=== PATIENT | male | born 1970 | race Caucasian/White ===

== ENCOUNTER 2018-03-28 22:02 | Emergency (ER) | payer BC, OTHER ==
[~2018-03-28] VITALS: Ht 182.9 cm; Wt 108.8 kg
[~2018-03-28 22:02] MED LIST: LSN5 PO; METF-384 PO; OMEP20CA9 PO
[2018-03-28 22:12] VITALS: TEMP 36.5; Ht 182.9 cm; Wt 108.8 kg
[2018-03-28] MEDS ORDERED: NovoLIN-R INSULIN PER UNIT CHARGE IV STA ×2 (22:31→23:20)
[2018-03-28] MEDS ORDERED: SODIUM CHLORIDE 0.9% 1000ML 2,000 ML IV STA (22:31)
[2018-03-28 22:43] LABS: BASO % 0.3 %; BASO ABS # 0.03 K/uL (0-0.2); EOS % 0.4 %; EOS ABS # 0.05 K/uL (0-0.5); HEMATOCRIT 40.4 % (42-52); HEMOGLOBIN 14.7 g/dL (14.0-18.0); IG# 0.14 K/uL (0.00-0.02); LYMPH % 28.9 %; LYMPH ABS # 3.32 K/uL (1.2-3.4); MEAN CORPUSCULAR HEMOGLOBIN 29.5 pg (25-34); MEAN CORPUSCULAR HGB CONC 36.4 g/dl (32-36); MEAN PLATELET VOLUME 9.3 fL (7.4-10.4); MONO % 4.7 %; MONO ABS # 0.54 K/uL (0.11-0.59); NEUT % 64.5 %; NEUT ABS # 7.41 K/uL (1.4-6.5); PLATELET COUNT 331 K/uL (130-400); RED CELL DISTRIBUTION WIDTH CV 12.7 % (11.5-14.5); RED CELL DISTRIBUTION WIDTH SD 37.2 fL (36.4-46.3); WHITE BLOOD COUNT 11.49 K/uL (4.8-10.8)
--- NOTE | 2018-03-28 23:07 | EMERGENCY ROOM VISIT NOTE ---
History Report prepared by Parvez: Anitha Cervantes Under the Supervision of: Dr. Marko Lloyd M.D. First contact with patient: 22:26 Chief Complaint: HYPERGLYCEMIA Stated Complaint: HIGH BLOOD SUGAR - BLURRY VISION Nursing Triage Summary: patient reports visual changes so he checked his blood sugar and it was greater than 300. Diabetic managed without insulin. Taking prednisone for a few days. History of Present Illness The patient is a 47 year old male who presents to the Emergency Room with complaints of persistent hyperglycemia starting MEDICAL OFFICER. The patient noticed yesterday that his vision had started becoming blurry and he was feeling fatigued. Today his blurry vision worsened so he checked his blood sugar and found that it was over 300. He has been urinating more than usual and has been thirsty. He does not check his sugar regularly, but when he does it is normally around 120. He was started on prednisone 4-5 days ago for his shoulder. His shoulder pain has improved, but it is causing his blood sugars to be elevated. Prednisone has caused his blood sugar to rise in the past. He has a history of diabetes and is on metformin and Actos which he has been taking normally. He denies any fever, cough, rash, or abdominal pain. Source of History: patient Onset: MEDICAL OFFICER Position: other (blood sugar) Quality: other (hyperglycemia) Timing: other (persistent) Modifying Factors (Worsening): other (prednisone) Associated Symptoms: + fatigue, No fevers, No cough, No abdominal pain, No rash Note: Pt reports blurry vision, frequent urination, increased thirst. Review of Systems See HPI for pertinent positives & negatives. A total of 10 systems reviewed and were otherwise negative. Past Medical & Surgical Medical Problems: (1) DIAB MARCY WO COMPL, TYPE II OR UNSPEC TYPE, NOT UNCNTRLD (2) ESOPHAGEAL REFLUX (3) FAM HX-DIABETES MELLITUS (4) FAM HX-ISCHEM HEART DIS (5) FX MEDIAL MALLEOLUS-CLOS (6) FX SHAFT FIBULA-CLOSED (7) PERSONAL HISTORY OF PEPTIC ULCER DISEASE Family History Diabetes mellitus Heart disease Hypertension Kidney disease Kidney stones Social History Smoking Status: Never Smoker Alcohol Use: none Marital Status: Housing Status: lives with family Occupation Status: employed Current/Historical Medications Scheduled Metformin Hcl (Glucophage), 1,000 MG PO BID Omeprazole (Prilosec), 20 MG PO DAILY Pioglitazone Hcl (Actos), Unknown Dose PO DAILY Allergies Coded Allergies: No Known Allergies (Unverified , 03/28/18) Physical Exam Vital Signs Date Time Temp Pulse Resp B/P (MAP) Pulse Ox O2 Delivery O2 Flow Rate FiO2 03/29/18 00:30 71 20 144/64 96 03/28/18 22:12 36.5 77 18 143/75 97 Room Air Physical Exam GENERAL: Patient is in no acute distress. HEENT: No acute trauma, normocephalic atraumatic, mucous membranes dry, no nasal congestion, no scleral icterus. NECK: No stridor, no adenopathy, no meningismus, trachea is midline. LUNGS: Clear to auscultation bilaterally, no wheeze, no rhonchi, breath sounds equal. HEART: Without murmurs gallops or rubs, regular rate and rhythm. ABDOMEN: Soft, nontender, bowel sounds positive, no hernias, no peritonitis. EXTREMITIES: No cyanosis or edema, full range of motion of all the joints without pain or difficulty, no signs for acute trauma. NEUROLOGIC: Oriented x 3, no acute motor or sensory deficits, no focal weakness. SKIN: No rash, no jaundice, no diaphoresis. Medical Decision & Procedures Laboratory Results 03/28/18 22:25 Red Blood Count 4.99, Mean Corpuscular Volume 81.0, Mean Corpuscular Hemoglobin 29.5, Mean Corpuscular Hemoglobin Concent 36.4, Mean Platelet Volume 9.3, Neutrophils (%) (Auto) 64.5, Lymphocytes (%) (Auto) 28.9, Monocytes (%) (Auto) 4.7, Eosinophils (%) (Auto) 0.4, Basophils (%) (Auto) 0.3, Neutrophils # (Auto) 7.41, Lymphocytes # (Auto) 3.32, Monocytes # (Auto) 0.54, Eosinophils # (Auto) 0.05, Basophils # (Auto) 0.03 03/28/18 22:25 Test 03/28/18 22:25 03/29/18 00:22 White Blood Count 11.49 K/uL (4.8-10.8) Red Blood Count 4.99 M/uL (4.7-6.1) Hemoglobin 14.7 g/dL (14.0-18.0) Hematocrit 40.4 % (42-52) Mean Corpuscular Volume 81.0 fL (80-100) Mean Corpuscular Hemoglobin 29.5 pg (25-34) Mean Corpuscular Hemoglobin Concent 36.4 g/dl (32-36) Platelet Count 331 K/uL (130-400) Mean Platelet Volume 9.3 fL (7.4-10.4) Neutrophils (%) (Auto) 64.5 % Lymphocytes (%) (Auto) 28.9 % Monocytes (%) (Auto) 4.7 % Eosinophils (%) (Auto) 0.4 % Basophils (%) (Auto) 0.3 % Neutrophils # (Auto) 7.41 K/uL (1.4-6.5) Lymphocytes # (Auto) 3.32 K/uL (1.2-3.4) Monocytes # (Auto) 0.54 K/uL (0.11-0.59) Eosinophils # (Auto) 0.05 K/uL (0-0.5) Basophils # (Auto) 0.03 K/uL (0-0.2) RDW Standard Deviation 37.2 fL (36.4-46.3) RDW Coefficient of Variation 12.7 % (11.5-14.5) Immature Granulocyte % (Auto) 1.2 % Immature Granulocyte # (Auto) 0.14 K/uL (0.00-0.02) Urine Color YELLOW Urine Appearance CLEAR (CLEAR) Urine pH 5.0 (4.5-7.5) Urine Specific [place] > 1.045 (1.000-1.030) Urine Protein NEG (NEG) Urine Glucose (UA) 3+ (NEG) Urine Ketones TRACE (NEG) Urine Occult Blood NEG (NEG) Urine Nitrite NEG (NEG) Urine Bilirubin NEG (NEG) Urine Urobilinogen NEG (NEG) Urine Leukocyte Esterase NEG (NEG) Anion Gap 8.0 mmol/L (3-11) Est Creatinine Clear Calc Drug Dose 100.5 ml/min Estimated GFR () 86.1 Estimated GFR (Non- 74.3 BUN/Creatinine Ratio 18.9 (10-20) Calcium Level 9.0 mg/dl (8.5-10.1) Total Bilirubin 0.5 mg/dl (0.2-1) Aspartate Amino Transf (AST/SGOT) 21 U/L (15-37) Alanine Aminotransferase (ALT/SGPT) 61 U/L (12-78) Alkaline Phosphatase 79 U/L (45-117) Total Protein 7.8 gm/dl (6.4-8.2) Albumin 4.0 gm/dl (3.4-5.0) Globulin 3.8 gm/dl (2.5-4.0) Albumin/Globulin Ratio 1.0 (0.9-2) Beta-Hydroxybutyric Acid 3.96 mg/dL (0.2-2.81) Bedside Glucose 224 mg/dl (70-99) Laboratory results reviewed by me. Medications Administered Medications (Trade) Dose Ordered Sig/Ap Route Start Time Stop Time Status Last Admin Dose Admin Insulin Human Regular (novoLIN-R U-100 PER UNIT) 8 units NOW STAT IV 03/28/18 22:31 03/28/18 22:34 DC 03/28/18 22:41 8 UNITS Sodium Chloride 2,000 ml @ 999 mls/hr Q2H1M STAT IV 03/28/18 22:31 03/29/18 00:31 DC 03/28/18 22:41 999 MLS/HR Insulin Human Regular (novoLIN-R U-100 PER UNIT) 8 units NOW STAT IV 03/28/18 23:20 03/28/18 23:21 DC 03/28/18 23:23 8 UNITS ED Course 2227: The patient was evaluated in room C7. A complete history and physical exam was performed. 2231: Sodium Chloride 2000 ml @ 999 mls/hr IV, Insulin Human Regular 8 units IV. 2320: Insulin Human Regular 8 units IV. 0017: I reevaluated the patient. 0024: Reevaluated the patient. Discussed results and discharge instructions: He verbalized understanding and agreement. The patient is ready for discharge. Medical Decision Differential diagnoses considered include hyperglycemia, dehydration, electrolyte imbalance, anemia, infection, medication reaction. There is a mild leukocytosis, this is likely consistent with the prednisone use. No anemia. Renal panel testing shows a sugar in the 300-400 range. No kidney failure. No hepatitis. Urinalysis does not show infection. On exam, the patient was not toxic. He did seem dehydrated. There was no fever. The patient received 2 L of IV saline. He received 2 doses of IV insulin, 8 units at a time. His blood sugar is now 224, he feels improved. Patient is being discharged to keep a watch on his blood sugar. He will continue his medications for diabetes as before. He will stop the prednisone, he can return here if his sugar continues to rise, he can follow with his family doctor's office. I do think the prednisone is the cause for the hyperglycemia. Medication Reconcilliation Current Medication List: was personally reviewed by me Blood Pressure Screening Patient's blood pressure: Elevated blood pressure Blood pressure disposition: Referred to PCP Impression Primary Impression: Hyperglycemia Additional Impressions: Dehydration Medication reaction Scribe Attestation The scribe's documentation has been prepared under my direction and personally reviewed by me in its entirety. I confirm that the note above accurately reflects all work, treatment, procedures, and medical decision making performed by me. Departure Information Dispostion Home / Self-Care Referrals Randell Nieves M.D. (PCP) Forms HOME CARE DOCUMENTATION FORM, IMPORTANT VISIT INFORMATION, WORK / SCHOOL INSTRUCTIONS Patient Instructions [facility] Additional Instructions stop the prednisone stay well hydrated continue your meds as before keep a watch on your sugars to be sure they stay reasonable see corey haynes for a reheck this week return if worsening or have fever Problem Qualifiers
[2018-03-28 23:08] LABS: CREATININE 1.17 mg/dl (0.60-1.40); TOTAL PROTEIN 7.8 gm/dl (6.4-8.2)
[2018-03-28 23:36] LABS: POTASSIUM 4.1 mmol/L (3.5-5.1)
[2018-03-29] MEDS ORDERED: ACT/15 PO (00:06)
[2018-03-29 00:30] VITALS: BP 144/64; PULSE 71; O2SAT 96
== END 2018-03-29 00:30 | disposition home or self-care (01) ==
LOC: C.EDB 22:04 → C.EDC 03-29 00:30
DX: E11.65 Type 2 diabetes mellitus with hyperglycemia (principal); E86.0 Dehydration; T38.0X Poisoning by, adverse effect of and underdosing of glucocorticoids and synthetic analogues; K21.9 Gastro-esophageal reflux disease without esophagitis; Z87.11 Personal history of peptic ulcer disease; Z83.3 Family history of diabetes mellitus; Z82.49 Family history of ischemic heart disease and other diseases of the circulatory system; Z84.1 Family history of disorders of kidney and ureter; Z79.84 Long term (current) use of oral hypoglycemic drugs; Z79.899 Other long term (current) drug therapy